=== PATIENT | male | born 2000 | race Caucasian/White ===

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

== ENCOUNTER 2018-05-29 09:33 | Emergency (ER) | payer OTHER ==
[~2018-05-29] VITALS: Ht 175.3 cm; Wt 72.8 kg
[2018-05-29 09:40] VITALS: TEMP 37; Ht 175.3 cm; Wt 72.8 kg
[2018-05-29] MEDS ORDERED: ONDANSETRON INJ 2 MG/ML 2 ML VIAL IV STA (10:07)
[2018-05-29] MEDS ORDERED: MoRPHine SULFATE 2 MG/ML CARP IV STA (10:07)
[2018-05-29] MEDS ORDERED: SODIUM CHLORIDE 0.9% 500ML 500 ML IV STA ×2 (10:07→12:01)
[2018-05-29] MEDS ORDERED: ACETAMINOPHEN IV 100 ML IV STA (10:07)
[2018-05-29] MEDS ORDERED: MoRPHine SULFATE 2 MG/ML CARP IV PRN (10:15)
[2018-05-29] MEDS ORDERED: OPTIRAY 320 IV PRN (10:30)
[2018-05-29 10:37] LABS: HEMATOCRIT 39.2 % (42-52); HEMOGLOBIN 13.6 g/dL (14.0-18.0); MEAN CELL VOLUME 85.2 fL (80-100); MEAN CORPUSCULAR HEMOGLOBIN 29.6 pg (25-34); MEAN CORPUSCULAR HGB CONC 34.7 g/dl (32-36); MEAN PLATELET VOLUME 9.1 fL (7.4-10.4); PLATELET COUNT 249 K/uL (130-400); RED CELL DISTRIBUTION WIDTH CV 13.3 % (11.5-14.5); RED CELL DISTRIBUTION WIDTH SD 41.4 fL (36.4-46.3); WHITE BLOOD COUNT 9.57 K/uL (4.8-10.8)
[2018-05-29 10:58] LABS: BLOOD UREA NITROGEN 14 mg/dl (7-18); CALCIUM 8.5 mg/dl (8.5-10.1); CARBON DIOXIDE 26 mmol/L (21-32); CREATININE 0.91 mg/dl (0.60-1.40); GLUCOSE 82 mg/dl (70-99); POTASSIUM 4.1 mmol/L (3.5-5.1); SODIUM 140 mmol/L (136-145)
--- NOTE | 2018-05-29 11:42 | DIAGNOSTIC IMAGING REPORT ---
HEAD WITHOUT CONTRAST (CT) CLINICAL HISTORY: 18 years-old Male with FALL, HIT HEAD. Acute head injury status post fall TECHNIQUE: Multiple axial CT images of the head were obtained without contrast. A dose lowering technique was utilized adhering to the principles of ALARA. COMPARISON: None. FINDINGS: No acute intracranial hemorrhage, midline shift, extra-axial hemorrhage or territorial ischemia. Ventricles, and cisterns appear within normal limits. Partially calcified extra-axial lesion adjacent to left frontal lobe measures 1.6 x 0.6 cm with adjacent linear calcification extending towards left frontal lobe sulcus. No hydrocephalus or intra-axial mass. No skull fracture. Mastoid air cells and middle ear cavities are clear. Soft tissues and orbits are unremarkable. IMPRESSION: 1. No acute intracranial abnormality or calvarial fracture. 2. Partially calcified extra-axial lesion adjacent to the left frontal lobe measuring up to 1.6 cm. Adjacent linear calcification is noted extending towards a left frontal lobe sulcus. Findings may reflect a partially calcified vascular malformation or meningioma. Findings could be correlated with a nonemergent follow-up brain MRI. The above report was generated using voice recognition software. It may contain grammatical, syntax or spelling errors. Electronically signed by: Washington Beckett M.D. 05/29/2018 11:41 AM Dictated Date/Time: 05/29/2018 11:34 AM
--- NOTE | 2018-05-29 11:48 | DIAGNOSTIC IMAGING REPORT ---
CT SCAN OF THE CHEST, ABDOMEN, AND PELVIS WITH IV CONTRAST CLINICAL HISTORY: Trauma. COMPARISON STUDY: Pelvic CT dated 06/27/2017. TECHNIQUE: Following the IV administration of 117 of Optiray 320, CT scan of the chest, abdomen, and pelvis was performed from the thoracic inlet to the proximal femora. Images are reviewed in the axial, sagittal, and coronal planes. IV contrast was administered without complication. A dose lowering technique was utilized adhering to the principles of ALARA. The examination is degraded by streak artifact from the left arm which could not be elevated above the chest or abdomen. CT DOSE: 1299.15 mGy.cm FINDINGS: CHEST: Thyroid: Imaged portions of the thyroid gland are normal in size and attenuation. Thoracic aorta: The thoracic aorta is normal in caliber and demonstrates standard 3-vessel arch anatomy. No dissection is seen. Pulmonary vasculature: The pulmonary trunk is normal in caliber. There are no filling defects identified in the central pulmonary vessels to indicate pulmonary embolus. Note that this examination was not protocoled for evaluation of the pulmonary arteries. Heart: The heart is normal in size and configuration, and without pericardial effusion. Lungs and pleural spaces: The lungs and pleural spaces are clear. There is no pneumothorax. The trachea and central airways are patent. Mediastinum: There is no mediastinal hematoma or lymphadenopathy. Minimal residual thymic tissue is noted in the anterior mediastinum. Yu: Clear. Axillae: There is no axillary lymphadenopathy. Bony thorax: The bony thorax appears intact. No lytic or blastic lesions are identified. ABDOMEN AND PELVIS: Liver: The contrast-enhanced liver is normal in size, contour, and attenuation. Fatty infiltration is seen adjacent to falciform ligament. There is no intrahepatic or ductal dilatation. The hepatic veins and portal veins are patent. Mild periportal edema is likely related to hydration status. Gallbladder: Unremarkable. Spleen: Normal in size and attenuation. Pancreas: Unremarkable. Adrenal glands: Unremarkable. Kidneys: The contrast enhanced kidneys are normal in size and without hydronephrosis. The kidneys enhance symmetrically. Abdominal vasculature: The abdominal aorta is normal in course and caliber. Bowel: The small bowel and colon are normal in course and caliber. The appendix is partially visualized and grossly unremarkable Peritoneum: There is no intraperitoneal free air or abdominal ascites. There is a small fat-containing umbilical hernia. Lymphadenopathy: None. Pelvic viscera: The bladder, prostate, and seminal vesicles are normal as visualized. Skeletal structures: The lumbosacral spine and bony pelvis appear intact. No lytic or blastic lesions are seen. There is a right-sided pars defect at L5. IMPRESSION: 1. There is no acute posttraumatic intrathoracic abnormality. 2. The lungs are clear. No pneumothorax is seen. 3. There is no evidence of solid organ injury in the abdomen or pelvis. 4. No fracture is identified. Electronically signed by: Rasehed Thomson M.D. 05/29/2018 11:46 AM Dictated Date/Time: 05/29/2018 11:34 AM
[2018-05-29] MEDS ORDERED: KETOROLAC TROMETHAMINE 30 MG/ML VIAL IV STA (12:01)
[2018-05-29 13:16] VITALS: BP 118/71; PULSE 72; O2SAT 99
--- NOTE | 2018-05-29 15:59 | EMERGENCY ROOM VISIT NOTE ---
History Report prepared by Jo: John Alcantara Under the Supervision of: Dr. Rasheed Soni M.D. First contact with patient: 10:02 Chief Complaint: RIB PAIN Stated Complaint: BROKEN RIB History of Present Illness The patient is a 18 year old male who presents to the Emergency Room with complaints of constant rib pain after a fall occurring last night. The patient reports that last night at 22:30, he fell down the stairs while running and tripped. He reports that he hit the right side of his head, left ribs, and right elbow. He denies loss of consciousness, and reports that there was no involvement of alcohol. He rates the current pain in his ribs at a 7/10 in severity. He states that he was able to sleep with difficulty last night. The patient reports a current headache, but denies neck pain. He reports that he has not taken anything for pain control. Source of History: patient Onset: last night at 22:30 Position: other (ribs) Symptom Intensity: 7/10 Timing: constant Associated Symptoms: + headache, No neck pain Review of Systems See HPI for pertinent positives & negatives. A total of 10 systems reviewed and were otherwise negative. Past Medical & Surgical Medical Problems: (1) No significant past medical history Family History Cancer Hypertension Social History Smoking Status: Current Every Day Smoker Occupation Status: [employer] student Current/Historical Medications No Active Prescriptions or Reported Meds Allergies Coded Allergies: No Known Allergies (Unverified , 05/29/18) Physical Exam Vital Signs Date Time Temp Pulse Resp B/P (MAP) Pulse Ox O2 Delivery O2 Flow Rate FiO2 05/29/18 13:16 72 18 118/71 99 05/29/18 12:33 74 16 114/69 97 05/29/18 10:56 75 16 106/70 98 Room Air 05/29/18 09:40 37.0 85 20 103/63 97 Room Air Physical Exam GENERAL: Patient is in no acute distress. HEENT: Mucous membranes moist. Contusion forming below the right eye. No globe trauma. No facial bony stepoff. No edema. NECK: No stridor, no adenopathy, no meningismus, trachea is midline. Nontender posterior c-spine. CHEST: Quite tender to the left inferior ribs along the lateral and anterior aspects. No contusion. LUNGS: Clear to auscultation bilaterally, no wheeze, no rhonchi, breath sounds equal. HEART: Without murmurs gallops or rubs, regular rate and rhythm. ABDOMEN: Soft, nontender, bowel sounds positive, no hernias, no peritonitis. EXTREMITIES: Abrasion to the right posterior lateral elbow. No joint effusion. Full range of motion in all joints of the right upper extremity. No pain with palpation or movement of the other 3 extremities. NEUROLOGIC: Oriented x 3, no acute motor or sensory deficits, no focal weakness. SKIN: No rash, no jaundice, no diaphoresis. Medical Decision & Procedures ER Provider Diagnostic Interpretation: Radiology results as stated below per my review and radiologist interpretation: CT SCAN OF THE CHEST, ABDOMEN, AND PELVIS WITH IV CONTRAST CLINICAL HISTORY: Trauma. COMPARISON STUDY: Pelvic CT dated 06/27/2017. TECHNIQUE: Following the IV administration of 117 of Optiray 320, CT scan of the chest, abdomen, and pelvis was performed from the thoracic inlet to the proximal femora. Images are reviewed in the axial, sagittal, and coronal planes. IV contrast was administered without complication. A dose lowering technique was utilized adhering to the principles of ALARA. The examination is degraded by streak artifact from the left arm which could not be elevated above the chest or abdomen. CT DOSE: 1299.15 mGy.cm FINDINGS: CHEST: Thyroid: Imaged portions of the thyroid gland are normal in size and attenuation. Thoracic aorta: The thoracic aorta is normal in caliber and demonstrates standard 3-vessel arch anatomy. No dissection is seen. Pulmonary vasculature: The pulmonary trunk is normal in caliber. There are no filling defects identified in the central pulmonary vessels to indicate pulmonary embolus. Note that this examination was not protocoled for evaluation of the pulmonary arteries. Heart: The heart is normal in size and configuration, and without pericardial effusion. Lungs and pleural spaces: The lungs and pleural spaces are clear. There is no pneumothorax. The trachea and central airways are patent. Mediastinum: There is no mediastinal hematoma or lymphadenopathy. Minimal residual thymic tissue is noted in the anterior mediastinum. Yu: Clear. Axillae: There is no axillary lymphadenopathy. Bony thorax: The bony thorax appears intact. No lytic or blastic lesions are identified. ABDOMEN AND PELVIS: Liver: The contrast-enhanced liver is normal in size, contour, and attenuation. Fatty infiltration is seen adjacent to falciform ligament. There is no intrahepatic or ductal dilatation. The hepatic veins and portal veins are patent. Mild periportal edema is likely related to hydration status. Gallbladder: Unremarkable. Spleen: Normal in size and attenuation. Pancreas: Unremarkable. Adrenal glands: Unremarkable. Kidneys: The contrast enhanced kidneys are normal in size and without hydronephrosis. The kidneys enhance symmetrically. Abdominal vasculature: The abdominal aorta is normal in course and caliber. Bowel: The small bowel and colon are normal in course and caliber. The appendix is partially visualized and grossly unremarkable Peritoneum: There is no intraperitoneal free air or abdominal ascites. There is a small fat-containing umbilical hernia. Lymphadenopathy: None. Pelvic viscera: The bladder, prostate, and seminal vesicles are normal as visualized. Skeletal structures: The lumbosacral spine and bony pelvis appear intact. No lytic or blastic lesions are seen. There is a right-sided pars defect at L5. IMPRESSION: 1. There is no acute posttraumatic intrathoracic abnormality. 2. The lungs are clear. No pneumothorax is seen. 3. There is no evidence of solid organ injury in the abdomen or pelvis. 4. No fracture is identified. Electronically signed by: Rasheed Thomson M.D. 05/29/2018 11:46 AM Dictated Date/Time: 05/29/2018 11:[address] SCAN OF THE CHEST, ABDOMEN, AND PELVIS WITH IV CONTRAST CLINICAL HISTORY: Trauma. COMPARISON STUDY: Pelvic CT dated 06/27/2017. TECHNIQUE: Following the IV administration of 117 of Optiray 320, CT scan of the chest, abdomen, and pelvis was performed from the thoracic inlet to the proximal femora. Images are reviewed in the axial, sagittal, and coronal planes. IV contrast was administered without complication. A dose lowering technique was utilized adhering to the principles of ALARA. The examination is degraded by streak artifact from the left arm which could not be elevated above the chest or abdomen. CT DOSE: 1299.15 mGy.cm FINDINGS: CHEST: Thyroid: Imaged portions of the thyroid gland are normal in size and attenuation. Thoracic aorta: The thoracic aorta is normal in caliber and demonstrates standard 3-vessel arch anatomy. No dissection is seen. Pulmonary vasculature: The pulmonary trunk is normal in caliber. There are no filling defects identified in the central pulmonary vessels to indicate pulmonary embolus. Note that this examination was not protocoled for evaluation of the pulmonary arteries. Heart: The heart is normal in size and configuration, and without pericardial effusion. Lungs and pleural spaces: The lungs and pleural spaces are clear. There is no pneumothorax. The trachea and central airways are patent. Mediastinum: There is no mediastinal hematoma or lymphadenopathy. Minimal residual thymic tissue is noted in the anterior mediastinum. Yu: Clear. Axillae: There is no axillary lymphadenopathy. Bony thorax: The bony thorax appears intact. No lytic or blastic lesions are identified. ABDOMEN AND PELVIS: Liver: The contrast-enhanced liver is normal in size, contour, and attenuation. Fatty infiltration is seen adjacent to falciform ligament. There is no intrahepatic or ductal dilatation. The hepatic veins and portal veins are patent. Mild periportal edema is likely related to hydration status. Gallbladder: Unremarkable. Spleen: Normal in size and attenuation. Pancreas: Unremarkable. Adrenal glands: Unremarkable. Kidneys: The contrast enhanced kidneys are normal in size and without hydronephrosis. The kidneys enhance symmetrically. Abdominal vasculature: The abdominal aorta is normal in course and caliber. Bowel: The small bowel and colon are normal in course and caliber. The appendix is partially visualized and grossly unremarkable Peritoneum: There is no intraperitoneal free air or abdominal ascites. There is a small fat-containing umbilical hernia. Lymphadenopathy: None. Pelvic viscera: The bladder, prostate, and seminal vesicles are normal as visualized. Skeletal structures: The lumbosacral spine and bony pelvis appear intact. No lytic or blastic lesions are seen. There is a right-sided pars defect at L5. IMPRESSION: 1. There is no acute posttraumatic intrathoracic abnormality. 2. The lungs are clear. No pneumothorax is seen. 3. There is no evidence of solid organ injury in the abdomen or pelvis. 4. No fracture is identified. Electronically signed by: Rasheed Thomson M.D. 05/29/2018 11:46 AM Dictated Date/Time: 05/29/2018 11:34 AM HEAD WITHOUT CONTRAST (CT) CLINICAL HISTORY: 18 years-old Male with FALL, HIT HEAD. Acute head injury status post fall TECHNIQUE: Multiple axial CT images of the head were obtained without contrast. A dose lowering technique was utilized adhering to the principles of ALARA. COMPARISON: None. FINDINGS: No acute intracranial hemorrhage, midline shift, extra-axial hemorrhage or territorial ischemia. Ventricles, and cisterns appear within normal limits. Partially calcified extra-axial lesion adjacent to left frontal lobe measures 1.6 x 0.6 cm with adjacent linear calcification extending towards left frontal lobe sulcus. No hydrocephalus or intra-axial mass. No skull fracture. Mastoid air cells and middle ear cavities are clear. Soft tissues and orbits are unremarkable. IMPRESSION: 1. No acute intracranial abnormality or calvarial fracture. 2. Partially calcified extra-axial lesion adjacent to the left frontal lobe measuring up to 1.6 cm. Adjacent linear calcification is noted extending towards a left frontal lobe sulcus. Findings may reflect a partially calcified vascular malformation or meningioma. Findings could be correlated with a nonemergent follow-up brain MRI. The above report was generated using voice recognition software. It may contain grammatical, syntax or spelling errors. Electronically signed by: Washington Beckett M.D. 05/29/2018 11:41 AM Dictated Date/Time: 05/29/2018 11:34 AM Laboratory Results 05/29/18 10:25 05/29/18 10:25 Test 05/29/18 10:25 Red Blood Count 4.60 M/uL (4.7-6.1) Mean Corpuscular Volume 85.2 fL (80-100) Mean Corpuscular Hemoglobin 29.6 pg (25-34) Mean Corpuscular Hemoglobin Concent 34.7 g/dl (32-36) RDW Standard Deviation 41.4 fL (36.4-46.3) RDW Coefficient of Variation 13.3 % (11.5-14.5) Mean Platelet Volume 9.1 fL (7.4-10.4) Anion Gap 8.0 mmol/L (3-11) Est Creatinine Clear Calc Drug Dose 129.6 ml/min Estimated GFR () 140.1 Estimated GFR (Non- 120.9 BUN/Creatinine Ratio 15.0 (10-20) Calcium Level 8.5 mg/dl (8.5-10.1) Troponin I < 0.015 ng/ml (0-0.045) Laboratory results reviewed by me. Medications Administered Medications (Trade) Dose Ordered Sig/Rima Route Start Time Stop Time Status Last Admin Dose Admin Sodium Chloride 500 ml @ 999 mls/hr Q31M STAT IV 05/29/18 10:07 05/29/18 10:37 DC 05/29/18 10:07 999 MLS/HR Acetaminophen 100 ml @ 400 mls/hr NOW STAT IV 05/29/18 10:07 05/29/18 10:21 DC 05/29/18 10:49 400 MLS/HR Ondansetron HCl (Zofran Inj) 4 mg NOW STAT IV 05/29/18 10:07 05/29/18 10:11 DC 05/29/18 10:49 4 MG Morphine Sulfate (MoRPHine SULFATE INJ) 2 mg NOW STAT IV 05/29/18 10:07 05/29/18 10:11 DC 05/29/18 10:49 2 MG Ketorolac Tromethamine (Toradol Inj) 15 mg NOW STAT IV 05/29/18 12:01 05/29/18 12:02 DC 05/29/18 12:06 15 MG Sodium Chloride 500 ml @ 999 mls/hr Q31M STAT IV 05/29/18 12:01 05/29/18 12:31 DC 05/29/18 12:01 999 MLS/HR ECG Per My Interpretation Indication: chest pain Rate (beats per minute): 70 Rhythm: other (ectopic atrial rhythm) Findings: other (Diffuse ST elevation consistent with repolarization. No PVCs.) ED Course 1005: The patient was evaluated in room B11B. A complete history and physical exam was performed. 1007: Ordered Morphine Sulfate 2 mg IV, Zofran 4 mg IV, Acetaminophen 100 ml @ 400 mls/hr Protocol IV, Sodium Chloride 500 ml @ 999 mls/hr IV 1015: Ordered Morphine Sulfate 2 mg IV 1201: Ordered Sodium Chloride 500 ml @ 999 mls/hr IV, Toradol 15 mg IV 1230: Reevaluated the patient. Discussed results and discharge instructions: He verbalized understanding and agreement. The patient is ready for discharge. Medical Decision Differential diagnosis: intracranial bleeding, concussion, skull fracture, cervical spine injury, rib fracture, pulmonary contusion, pneumothorax, hemothorax, splenic injury, extremity fracture. There is no leukocytosis or concerning anemia. No significant electrolyte abnormality, no renal failure. Brain CT shows no acute bleed or mass-effect. Chest CT does not show rib fracture, hemothorax or pneumothorax, there was no pulmonary contusion. Abdominal and pelvis CT shows no acute traumatic findings , no solid organ injury. On exam, there was no evidence for extremity fracture. He did not have cervical spine tenderness. The patient was given IV saline, IV Tylenol, IV morphine, IV Zofran. He received IV Toradol in addition for pain control. The patient fell last evening and presents with a lot of lower left chest pain. He also struck his head. His workup here is reassuring. He has suffered some head trauma, a contusion of the chest wall and has an abrasion to his right elbow. He is being discharged with [id number] pain meds, rest and follow-up. Of note, the patient had a calcification on his brain CT for which follow-up was recommended. This is not an acute finding and can be followed up through [facility]. The patient was made aware of the imaging results. Head Trauma GCS Score: 15 Medication Reconcilliation Current Medication List: was personally reviewed by me Blood Pressure Screening Patient's blood pressure: Normal blood pressure Blood pressure disposition: Did not require urgent referral Impression Primary Impression: Contusion of left chest wall Additional Impressions: Head trauma Elbow abrasion Fall Scribe Attestation The scribe's documentation has been prepared under my direction and personally reviewed by me in its entirety. I confirm that the note above accurately reflects all work, treatment, procedures, and medical decision making performed by me. Departure Information Dispostion Home / Self-Care Prescriptions No Active Prescriptions or Reported Meds Referrals No Doctor, Assigned (PCP) Forms HOME CARE DOCUMENTATION FORM, IMPORTANT VISIT INFORMATION, WORK / SCHOOL INSTRUCTIONS Patient Instructions My [facility] Additional Instructions follow with S for the brain MRI as recommended by the radiologist--you have a calcification that requires further imaging use motrin 600 mg every 6 hours for pain as needed use tylenol also as needed for pain ice to the sore areas today--switch to using heat tomorrow return for worsening symptoms no gym or sports until 100 percent better Problem Qualifiers
== END 2018-05-29 13:18 | disposition home or self-care (01) ==
LOC: C.EDB 09:34
DX: S20.20XA Contusion of thorax, unspecified, initial encounter (principal); S09.90XA Unspecified injury of head, initial encounter; S50.319A Abrasion of unspecified elbow, initial encounter; W19.XXXA Unspecified fall, initial encounter; F17.200 Nicotine dependence, unspecified, uncomplicated